=== PATIENT | male | born 1965 | race Native Hawaiian/Other Pacific Islander ===

== ENCOUNTER 2022-01-28 05:30 | Emergency (ER) | payer BC ==
[~2022-01-28] VITALS: Ht 172.7 cm; Wt 63.0 kg
--- NOTE | 2022-01-28 06:00 | NUR ---
Dr Mcdaniel at bedside. MSE in progress
[2022-01-28] MEDS ORDERED: LORA-258 PO (06:05)
--- NOTE | 2022-01-28 06:10 | NUR ---
Patient is able to walk to the restroom with steady gait
--- NOTE | 2022-01-28 06:57 | NUR ---
Dr Mcdaniel at bedside. MSE in progress
--- NOTE | 2022-01-28 07:02 | NUR ---
Patient taken to CT
--- NOTE | 2022-01-28 07:09 | NUR ---
Patient back from CT
[2022-01-28 07:10] LABS: HEMATOCRIT 40.4 % (36.7-47.1); MEAN CORPUSCULAR HEMOGLOBIN 31.1 uug (23.8-33.4); MEAN CORPUSCULAR VOLUME 89.4 fL (73.0-96.2); PLATELET COUNT (AUTO) 159 K/uL (152-348)
--- NOTE | 2022-01-28 07:10 | NUR ---
hand off report to Hazel PICHARDO
[2022-01-28 07:16] LABS: *BILIRUBIN,URIN NEGATIVE (NEGATIVE); *BLOOD, URINE NEGATIVE (NEGATIVE); *CLARITY,URINE CLEAR (CLEAR); *COLOR,URINE YELLOW (YELLOW); *KETONES,URINE NEGATIVE (NEGATIVE); *UROBILINOGEN,URINE 0.2 E.U./dl (NORMAL); LEUKOCYTE ESTERASE ,URINE NEGATIVE (NEGATIVE); NITRITE, URINE NEGATIVE (NEGATIVE); PH,URINE 5.5 (5.0-8.0); UGLUCOSE NEGATIVE (NEGATIVE)
[2022-01-28 07:27] LABS: BILIRUBIN,DIRECT 0.2 mg/dL (0.0-0.2); BILIRUBIN,TOTAL 0.6 mg/dL (0.2-1.0); CREATININE 0.8 mg/dL (0.6-1.3); POTASSIUM 3.7 mmol/L (3.5-5.1); TOTAL PROTEIN, SERUM 6.3 g/dL (6.4-8.2)
--- NOTE | 2022-01-28 07:32 | NUR ---
recieved patient from [facility] in stable condition. Patient is awake and alert.
[2022-01-28] MEDS ORDERED: IBUP-1955 PO (09:25)
== END 2022-01-28 09:39 | disposition home or self-care (01) ==
LOC: ER 05:37
DX: R10.31 Right lower quadrant pain (principal); R10.9 Unspecified abdominal pain; N40.0 Benign prostatic hyperplasia without lower urinary tract symptoms; G47.00 Insomnia, unspecified; Z98.52 Vasectomy status; Z88.0 Allergy status to penicillin
CPT/HCPCS: 36415; 83690; 85025; A4663